=== PATIENT | female | born 1935 | race Caucasian/White ===

== ENCOUNTER 2021-07-13 17:52 | Inpatient (IN) ==
[2021-07-13] MEDS ORDERED: ACETAMINOPHEN 500 MG TAB PO STA (18:07)
--- NOTE | 2021-07-13 18:11 | Emergency Department Note ---
Impression & Plan Closed fracture of left hip, Closed T11 fracture, Fall, Thrombocythemia ED Provider Note NAME: MEGGAN TRINH AGE: 85 SEX: F : 1935 ARRIVES VIA: Ambulance INFORMANT: Patient, EMS personnel, [facility] PROVIDER(S): Desmond Delarosa DO CHIEF COMPLAINT: Back pain the patient is an 85-year-old female who presented to the emergency department for an evaluation of back pain. The patient states that she was HPI: At rehab today at approximately 3:15 PM when she caught her leg and fell down onto her right side. The patient does complain of mostly left-sided pain including her hip her knee as well as her low back. She does take oral anticoagulation and did strike her head but at this time she does not complain of a headache. She denies having any nausea. She states pain is moderate and worsens with any movement or ambulation. She denies having any chest pain. She denies having any difficulty breathing. She has had no recent fevers. [facility] She states that she has been compliant with all of her usual outpatient medications. ROS: See above HPI for pertinent positives & negatives. A total of 10 systems reviewed and were otherwise negative. PAST MEDICAL HISTORY: See Below PAST SURGICAL HISTORY: See Below FAMILY HISTORY: See Below SOCIAL HISTORY: See Below HOME MEDICATIONS: See Below ALLERGIES: See Below VITALS: See Below PHYSICAL EXAMINATION: GENERAL: Patient is awake alert in no acute distress patient is resting comfortably and showing no signs of anxiety EYES: The conjunctivae are clear. The pupils are round and reactive. EARS, NOSE, MOUTH AND THROAT: The nose is without any evidence of any deformity. NECK: The neck is nontender and supple. RESPIRATORY: Normal respiratory effort is noted there is no evidence of wheezing rhonchi or rales CARDIOVASCULAR: Regular rate and rhythm noted there no murmurs rubs or gallops normal S1 normal S2. GASTROINTESTINAL: The abdomen is soft. Abdomen is nontender. BACK: Upper lumbar and lower thoracic pain was noted to palpation. There is no step-off. Range of motion elicits pain but appears to be intact. MUSCULOSKELETAL/EXTREMITIES: There is multiple areas on the patient's body where she has palpable tenderness including her knees bilaterally her hips bilaterally as well as her shoulders bilaterally. The patient states that her shoulder pain is chronic and not new. She denies any new injury to either upper extremity. There is no pain with range of motion testing of either upper extremity. SKIN: There is no obvious evidence of any rash. Trace pedal edema was noted bilaterally. NEUROLOGIC: Patient is awake alert and oriented x3. MEDICAL DECISION MAKING: The patient is an 85-year-old female who presented to the emergency department after a fall. The patient had a fall while she was at rehab. The patient has had multiple falls recently it sounds though she has had bilateral knee pain which may be chronic. On physical exam she had left hip pain as well as back pain. The patient was treated with pain medication in the emergency department. I discussed the patient's laboratory and radiographic studies with her. She does take blood thinners so further CT was obtained to ensure there is no intracranial pathology. Ultimately the patient was found to have a T11 spinal fracture as well as a closed left hip fracture. I discussed the patient's condition [facility] They have agreed to evaluate the patient in the emergency department for further management and disposition. Triage Nursing notes reviewed. Prior medical records reviewed Vital Signs: reviewed and remarkable for no significant abnormalities Differential diagnosis: Fracture, subluxation, dislocation, contusion, ligamentous injury, neurovascular, compartment syndrome, rhabdomyolysis, as well as other pathologies. ER treatment provided: See below Diagnostics interpreted by me: ECG: EKG was obtained in the emergency department. My interpretation is atrial fibrillation at 66 bpm. Right bundle branch block pattern was noted. There is no definite PVCs noted. Cardiac Monitoring: An order was placed for continuous cardiac monitoring. The monitor shows a rate of 69 bpm with atrial fibrillation rhythm. Laboratory studies: As stated above and show below. Imaging studies: See below Consultation(s): 2020: I discussed this case with Dr. Lund who is [facility]. He will evaluate the patient in the emergency department. Past Med/Surg History Medical History History of atrial fibrillation History of CHF (congestive heart failure) History of COPD History of coronary artery disease History of kidney stones Surgical History History of coronary artery bypass graft History of permanent cardiac pacemaker placement Social History (Updated 07/13/21 @ 20:17 by Desmond Delarosa DO) Smoking Status: Never smoker Do You Dip or Chew Tobacco: No; Hx Alcohol Use: No Hx Substance Use: No Communication Ability: Effective Beliefs That Will Affect Care: None Current Living Situation: Alone Feels Safe at Home: Yes Safety Concerns: Feels Safe At This Time Assistive Devices: Glasses, Oxygen - Continuous and Walker Assistive Devices Comment: glasses not with patient Allergies Allergies Allergy/AdvReac Type Severity Reaction Status Date / Time acetaminophen [From Tylenol] Allergy Unknown Verified 07/13/21 20:40 adhesive tape Allergy Unknown Verified 07/13/21 20:40 hydromorphone Allergy Unknown Verified 07/13/21 20:40 oxycodone [From Percocet] Allergy Unknown Verified 07/13/21 20:40 Penicillins Allergy Unknown Verified 07/13/21 20:40 FLU VACCINE Allergy Unknown Uncoded 07/13/21 20:40 HAEMOPHILUS INFLUENZAE Allergy Unknown Uncoded 07/13/21 20:40 Home Meds Home Medications Medication Instructions Recorded Confirmed alendronate 70 mg tablet 70 mg PO WK 07/13/21 07/13/21 apixaban 5 mg tablet (Eliquis) 5 mg PO BID 07/13/21 07/13/21 atorvastatin 80 mg tablet 80 mg PO QPM 07/13/21 07/13/21 fluticasone furoate 200 1 inh INHALATION DAILY 07/13/21 07/13/21 mcg-vilanterol 25 mcg/dose inhalation powder (Breo Ellipta) glipizide 10 mg tablet, extended 10 mg PO DAILY 07/13/21 07/13/21 release 24 hr insulin regular human 100 unit/mL 1 sliding scale dose SUBCUT 07/13/21 07/13/21 injection solution (Humulin R USEASDIRECTD Regular U-100 Insulin) mirabegron 25 mg tablet,extended 25 mg PO DAILY 07/13/21 07/13/21 release 24 hr (Myrbetriq) potassium chloride 10 mEq 10 meq PO BID 07/13/21 07/13/21 tablet,extended release sertraline 50 mg tablet 50 mg PO DAILY 07/13/21 07/13/21 torsemide 20 mg tablet 40 mg PO .TODAY 07/13/21 07/13/21 torsemide 20 mg tablet 40 mg PO DAILY 07/13/21 07/13/21 Results & Data (ED) Vital Signs Vital Signs - 24 hr 07/13/21 18:00 07/13/21 20:37 Temperature 36.4 C L Temperature Source Oral Pulse Rate 69 Respiratory Rate 20 Blood Pressure 152/89 H Blood Pressure Mean 110 Pulse Oximetry 91 99 Oxygen Delivery Method Room Air Nasal Cannula Oxygen Flow Rate 3 Sepsis Recent Fever Within 48 Hours No Sepsis New/Unexplained Change in Mental Status No Sepsis Action Taken by Nursing No Action Required Home Medications Current Medication List: was personally reviewed by me Laboratory Data Attestation: I reviewed the patient's lab results. Result diagrams: 07/13/21 20:16 07/13/21 20:16 Lab Results 07/13/21 07/13/21 07/13/21 Range/Units 20:14 20:14 20:16 WBC (4.8-10.8) K/uL RBC (4.2-5.4) M/uL Hgb (12.0-16.0) g/dL Hct (37-47) % MCV (80-100) fL MCH (25-34) pg MCHC (32-36) g/dL RDW Std Deviation (36.4-46.3) fL RDW Coeff of Pascual (11.5-14.5) % Plt Count (130-400) K/uL MPV (7.4-10.4) fL Immature Gran % (Auto) % Neut % (Auto) % Lymph % (Auto) % Hitchcock % (Auto) % Eos % (Auto) % Baso % (Auto) % Neut # (Auto) (1.4-6.5) K/uL Lymph # (Auto) (1.2-3.4) K/uL Hitchcock # (Auto) (0.11-0.59) K/uL Eos # (Auto) (0-0.5) K/uL Baso # (Auto) (0-0.2) K/uL Immature Gran # (Auto) (0.00-0.02) K/uL PT (9.0-12.0) Seconds INR (0.9-1.1) APTT (21.0-31.0) Seconds PTT Ratio Sodium (136-145) mmol/L Potassium (3.5-5.1) mmol/L Chloride (98-107) mmol/L Carbon Dioxide (21-32) mmol/L Anion Gap (3-11) BUN (7-18) mg/dl Creatinine (0.6-1.2) mg/dl Est Cr Clr Drug Dosing ml/min Est GFR ( Amer) ml/min Est GFR (Non-Af Amer) ml/min BUN/Creatinine Ratio (10-20) Glucose (70-99) mg/dl Calcium (8.5-10.1) mg/dl Total Bilirubin (0.2-1) mg/dl AST (15-37) U/L ALT (12-78) U/L Alkaline Phosphatase (45-117) U/L Troponin I (0-0.045) ng/ml Total Protein (6.4-8.2) gm/dl Albumin (3.4-5.0) gm/dl Globulin (2.5-4.0) gm/dl Albumin/Globulin Ratio (0.9-2) Lipase (73-393) U/L Urine Color Urine Appearance (Clear) Urine pH (4.5-7.5) Ur Specific Chana (1.000-1.030) Urine Protein (Negative) Urine Glucose (UA) (Negative) Urine Ketones (Negative) Urine Blood (Negative) Urine Nitrite (Negative) Urine Bilirubin (Negative) Urine Urobilinogen (Negative) Ur Leukocyte Esterase (Negative) Urine WBC (Auto) (0-5) /hpf Urine RBC (Auto) (0-4) /hpf U Hyaline Cast (Auto) (0-5) /lpf U Epithel Cells (Auto) (0-5) /lpf Urine Bacteria (Auto) (Negative) COVID-19 Eval Order Covid19 at [facility] SARS-CoV-2 (PCR) NEGATIVE (Negative) Blood Type A Positive Antibody Screen NEGATIVE 07/13/21 07/13/21 07/13/21 Range/Units 20:16 20:16 20:16 WBC 15.84 H (4.8-10.8) K/uL RBC 3.87 L (4.2-5.4) M/uL Hgb 12.8 (12.0-16.0) g/dL Hct 39.6 (37-47) % MCV 102.3 H (80-100) fL MCH 33.1 (25-34) pg MCHC 32.3 (32-36) g/dL RDW Std Deviation 58.8 H (36.4-46.3) fL RDW Coeff of Pascual 15.7 H (11.5-14.5) % Plt Count 819 H (130-400) K/uL MPV 10.8 H (7.4-10.4) fL Immature Gran % (Auto) 0.4 % Neut % (Auto) 76.4 % Lymph % (Auto) 13.3 % Hitchcock % (Auto) 6.3 % Eos % (Auto) 3.3 % Baso % (Auto) 0.3 % Neut # (Auto) 12.11 H (1.4-6.5) K/uL Lymph # (Auto) 2.11 (1.2-3.4) K/uL Hitchcock # (Auto) 0.99 H (0.11-0.59) K/uL Eos # (Auto) 0.53 H (0-0.5) K/uL Baso # (Auto) 0.04 (0-0.2) K/uL Immature Gran # (Auto) 0.06 H (0.00-0.02) K/uL PT 10.9 (9.0-12.0) Seconds INR 1.1 (0.9-1.1) APTT 28.5 (21.0-31.0) Seconds PTT Ratio 1.1 Sodium 142 (136-145) mmol/L Potassium 3.5 (3.5-5.1) mmol/L Chloride 106 (98-107) mmol/L Carbon Dioxide 31 (21-32) mmol/L Anion Gap 5.0 (3-11) BUN 27 H (7-18) mg/dl Creatinine 1.13 (0.6-1.2) mg/dl Est Cr Clr Drug Dosing 32.8 ml/min Est GFR ( Amer) 51.3 ml/min Est GFR (Non-Af Amer) 44.3 ml/min BUN/Creatinine Ratio 24.0 H (10-20) Glucose 108 H (70-99) mg/dl Calcium 8.8 (8.5-10.1) mg/dl Total Bilirubin 0.5 (0.2-1) mg/dl AST 18 (15-37) U/L ALT 17 (12-78) U/L Alkaline Phosphatase 82 (45-117) U/L Troponin I < 0.015 (0-0.045) ng/ml Total Protein 7.1 (6.4-8.2) gm/dl Albumin 3.1 L (3.4-5.0) gm/dl Globulin 4.0 (2.5-4.0) gm/dl Albumin/Globulin Ratio 0.8 L (0.9-2) Lipase 394 H (73-393) U/L Urine Color Urine Appearance (Clear) Urine pH (4.5-7.5) Ur Specific Chana (1.000-1.030) Urine Protein (Negative) Urine Glucose (UA) (Negative) Urine Ketones (Negative) Urine Blood (Negative) Urine Nitrite (Negative) Urine Bilirubin (Negative) Urine Urobilinogen (Negative) Ur Leukocyte Esterase (Negative) Urine WBC (Auto) (0-5) /hpf Urine RBC (Auto) (0-4) /hpf U Hyaline Cast (Auto) (0-5) /lpf U Epithel Cells (Auto) (0-5) /lpf Urine Bacteria (Auto) (Negative) COVID-19 Eval Order SARS-CoV-2 (PCR) (Negative) Blood Type Antibody Screen 07/13/21 Range/Units 20:37 WBC (4.8-10.8) K/uL RBC (4.2-5.4) M/uL Hgb (12.0-16.0) g/dL Hct (37-47) % MCV (80-100) fL MCH (25-34) pg MCHC (32-36) g/dL RDW Std Deviation (36.4-46.3) fL RDW Coeff of Pascual (11.5-14.5) % Plt Count (130-400) K/uL MPV (7.4-10.4) fL Immature Gran % (Auto) % Neut % (Auto) % Lymph % (Auto) % Hitchcock % (Auto) % Eos % (Auto) % Baso % (Auto) % Neut # (Auto) (1.4-6.5) K/uL Lymph # (Auto) (1.2-3.4) K/uL Hitchcock # (Auto) (0.11-0.59) K/uL Eos # (Auto) (0-0.5) K/uL Baso # (Auto) (0-0.2) K/uL Immature Gran # (Auto) (0.00-0.02) K/uL PT (9.0-12.0) Seconds INR (0.9-1.1) APTT (21.0-31.0) Seconds PTT Ratio Sodium (136-145) mmol/L Potassium (3.5-5.1) mmol/L Chloride (98-107) mmol/L Carbon Dioxide (21-32) mmol/L Anion Gap (3-11) BUN (7-18) mg/dl Creatinine (0.6-1.2) mg/dl Est Cr Clr Drug Dosing ml/min Est GFR ( Amer) ml/min Est GFR (Non-Af Amer) ml/min BUN/Creatinine Ratio (10-20) Glucose (70-99) mg/dl Calcium (8.5-10.1) mg/dl Total Bilirubin (0.2-1) mg/dl AST (15-37) U/L ALT (12-78) U/L Alkaline Phosphatase (45-117) U/L Troponin I (0-0.045) ng/ml Total Protein (6.4-8.2) gm/dl Albumin (3.4-5.0) gm/dl Globulin (2.5-4.0) gm/dl Albumin/Globulin Ratio (0.9-2) Lipase (73-393) U/L Urine Color Yellow Urine Appearance Clear (Clear) Urine pH 7.0 (4.5-7.5) Ur Specific Chana 1.010 (1.000-1.030) Urine Protein Negative (Negative) Urine Glucose (UA) Negative (Negative) Urine Ketones Negative (Negative) Urine Blood Negative (Negative) Urine Nitrite Negative (Negative) Urine Bilirubin Negative (Negative) Urine Urobilinogen Negative (Negative) Ur Leukocyte Esterase 1+ H (Negative) Urine WBC (Auto) 10-30 H (0-5) /hpf Urine RBC (Auto) 0-4 (0-4) /hpf U Hyaline Cast (Auto) 1-5 (0-5) /lpf U Epithel Cells (Auto) 10-20 H (0-5) /lpf Urine Bacteria (Auto) 4+ H (Negative) COVID-19 Eval Order SARS-CoV-2 (PCR) (Negative) Blood Type Antibody Screen Administered Medications Sodium Chloride (Nss 1000ml) 1,000 mls @ 80 mls/hr IV .[id number] TRISTA Stop: 08/12/21 23:09 Last Admin: 07/13/21 23:49 Dose: 80 mls/hr Documented by: [id number] Discontinued Medications Acetaminophen (Acetaminophen 500 Mg Tab) 1,000 mg PO NOW STA Stop: 07/13/21 18:08 Last Admin: 07/13/21 18:16 Dose: 1,000 mg Documented by: [id number] Imaging Data Radiologist's Impression: Cervical Spine CT 07/13/21 18:[address] DOSE: 3378.30 mGy.cm HISTORY: Fall. Neck pain. TECHNIQUE: Multiaxial CT images of the cervical spine were performed and reformatted in the sagittal and coronal plane without the use of contrast. A dose lowering technique was utilized adhering to the principles of ALARA. COMPARISON: None. FINDINGS: No fractures. No subluxation. Prevertebral soft tissues and the C1-C2 interval are intact. No pneumothorax. IMPRESSION: No fractures within the cervical spine. ACT 112: Negative or not required by law. Electronically signed by: John Jensen M.D. 07/13/2021 7:[address] 07/13/21 18:[address] DOSE: HISTORY: Fall. TECHNIQUE: Multiaxial CT images of the head were performed without the use of intravenous contrast. Automated exposure control was utilized for this study. A dose lowering technique was utilized adhering to the principles of ALARA. Comparison: None. Findings: Moderate mucosal thickening and a small fluid level within the right maxillary sinus. There is near-complete opacification of the right mastoid air cells. A 2 cm anterior nasal septal defect is noted. This is likely chronic. The left mastoid air cells are clear. The calvarium and skull base are intact. There is no mass, hematoma, midline shift, acute infarct. White matter hypodensity is nonspecific but suggestive of microvascular ischemic change. The ventricles and sulci demonstrate mild age-related involutional changes. Impression: 1. No acute intracranial abnormality. 2. Atrophy and microvascular ischemic changes. 3. An acute mild right maxillary sinusitis. There is also a right mastoid effusion. ACT 112: Negative or not required by law. Electronically signed by: John Jensen M.D. 07/13/2021 7:01 PM Hip/Pelvis X-Ray 07/13/21 18:05 XR hips KRISTIAN 1v w pelvis CLINICAL HISTORY: Fall. Bilateral hip pain. COMPARISON STUDY: None. FINDINGS: Subtle cortical irregularity at the left femoral head neck junction consistent with an impacted subcapital fracture. No dislocation. The bones are osteopenic. The visualized pelvic bones are intact. No fracture or dislocation within the right hip. There is mild osteoarthritis within the bilateral hips. IMPRESSION: Slightly impacted subcapital left femoral neck fracture. No dislocation. ACT 112: Negative or not required by law. Electronically signed by: John Jensen M.D. 07/13/2021 7:34 PM Knee X-Ray 07/13/21 18:05 XR knee RT 1 or 2V routine, XR knee LT 1 or 2V routine CLINICAL HISTORY: Fall. Bilateral knee pain. COMPARISON STUDY: None. FINDINGS: The bones are osteopenic. No fracture or dislocation within the right or left knee. Small bilateral knee effusions. Surgical clips within the left lower leg. Vascular calcifications are noted. Moderate to severe bilateral knee osteoarthritis. IMPRESSION: 1. No fractures within the right or left knee. 2. Small bilateral knee effusions. 3. Moderate to severe bilateral osteoarthritis. ACT 112: Negative or not required by law. Electronically signed by: John Jensen M.D. 07/13/2021 7:36 PM Knee X-Ray 07/13/21 18:05 XR knee RT 1 or 2V routine, XR knee LT 1 or 2V routine CLINICAL HISTORY: Fall. Bilateral knee pain. COMPARISON STUDY: None. FINDINGS: The bones are osteopenic. No fracture or dislocation within the right or left knee. Small bilateral knee effusions. Surgical clips within the left lower leg. Vascular calcifications are noted. Moderate to severe bilateral knee osteoarthritis. IMPRESSION: 1. No fractures within the right or left knee. 2. Small bilateral knee effusions. 3. Moderate to severe bilateral osteoarthritis. ACT 112: Negative or not required by law. Electronically signed by: John Jensen M.D. 07/13/2021 7:[address] 07/13/21 18:[address] DOSE: HISTORY: Back pain. Fall. TECHNIQUE: Multiaxial CT images of the lumbar spine were performed and reformatted in the sagittal and coronal plane without the use of contrast. A dose lowering technique was utilized adhering to the principles of ALARA. COMPARISON: None. FINDINGS: No fractures within the lumbar spine. There is 5 mm of anterolisthesis of L4 and L5. Mild disc space narrowing at L4-5. There are moderate to severe facet degenerative changes within the mid to lower lumbar spine. The sacrum is intact. IMPRESSION: No fractures within the lumbar spine. ACT 112: Negative or not required by law. Electronically signed by: John Jensen M.D. 07/13/2021 7:[address] 07/13/21 18:[address] DOSE: HISTORY: Fall. Back pain. TECHNIQUE: Multiaxial CT images of the thoracic spine were performed and reformatted in the sagittal and coronal plane without the use of contrast. A dose lowering technique was utilized adhering to the principles of ALARA. COMPARISON: None. FINDINGS: Multiple old, healed right-sided rib fractures. 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 No subluxation. Moderate dextroscoliosis. There is a horizontal fracture through the anterior half of the T11 vertebral body. This does not involve the posterior cortex or posterior elements. This fracture appears to extend to the inferior endplate of T11. No significant loss of height or retropulsion identified. Mild paravertebral edema at the T11 level. The central canal shows no significant narrowing. Emphysema. No pneumothorax. No pleural effusions. A 7 mm nodule within the left upper lobe posteriorly abutting the major fissure on image 110. IMPRESSION: 1. A nondisplaced horizontal fracture through the anterior aspect of the T11 ve rtebral body which extends to the inferior endplate. No associated retropulsion or significant loss of height. The fracture does not extend to the posterior cortex or posterior elements. 2. Emphysema. 3. A 7 mm indeterminate pulmonary nodule within the left upper lobe. Please refer to the chart below for recommended follow-up. 4. Multiple old, healed right-sided rib fractures. Please refer to below summary of Fleischner criteria recommendations for follow- up of incidental CT nodules (Mick Obrien, Guidelines for management of small pu lmonary nodules detected on CT scans: A statement from the Fleischner Society, Radiology 237: [phone].) SOLID NODULES Solitary nodule size: <6 mm * Low risk patients: no follow-up needed * high risk patients: optional CT at 12 months Solitary nodule size: 6-8 mm * Low risk patients: follow-up at 6-12 months, then consider further follow-up at 18-24 months * high risk patients: initial follow-up CT at 6-12 months and then at 18-24 months if no change Solitary nodule size: >8 mm * either low or high risk patients - consider follow-up CT at 3 months, and/or CT-PET, and/or biopsy Multiple nodules size: <6 mm * Low risk patients: no routine follow-up * high risk patients: optional CT at 12 months Multiple nodules size: 6-8 mm * Low risk patients: follow-up at 3-6 months, then consider further follow-up at 18-24 months * high risk patients: follow-up at 3-6 months, then at 18-24 months if no change Multiple nodules size: >8 mm * Low risk patients: follow-up at 3-6 months, then consider further follow-up at 18-24 months * high risk patients: follow-up at 3-6 months, then at 18-24 months if no change Note: newly detected indeterminate nodule in persons 35 years of age or older. * Low risk patients: minimal or absent history of smoking and/or other known risk factors * high risk patients: history of smoking or of other known risk factors (e.g. first degree relative with lung cancer, or exposure to asbestos, radon, uranium) * if a nodule up to 8 mm is partly solid or is ground glass further follow-up is required after 24 months to exclude possible slow growing adenocarcinoma (YOLA) SUBSOLID NODULES Solitary pure ground-glass nodule * nodule size <6 mm - no CT follow-up required * nodule size >=6 mm - follow-up CT at 6-12 months, then every 2 years until 5 years Solitary part-solid nodule * nodule size <6 mm - no CT follow-up required * nodule size >=6 mm - follow-up CT at 3-6 months. If unchanged, and solid component remains <6 mm, then annual follow-up for 5 years Multiple subsolid nodules * nodule size <6 mm - follow-up CT at 3-6 months, consider further follow-up at 2 and 4 years if stable * nodule size >=6 mm - follow-up CT at 3-6 months, subsequent management based on the most suspicious nodule(s) ACT 112: Positive. There are findings on this exam that require communication between the performing entity and the patient following Patient Test Result Information Act ([place] Act 112) guidelines. Electronically signed by: John Jensen M.D. 07/13/2021 7:14 PM Chest X-Ray 07/13/21 19:53 XR chest 1V portable HISTORY: Atypical Chest Pain COMPARISON: None. FINDINGS: Slightly rotated study. No pneumothorax. No pleural effusions. No focal lung consolidations to suggest pneumonia. Mild interstitial thickening which is likely chronic. A few bibasilar linear densities likely representing subsegmental atelectasis or scarring. The heart is mildly enlarged. Is left- sided dual-chamber pacemaker and poststernotomy changes. No evidence for pulmonary edema. Severe degenerative changes within the left glenohumeral joint with an old fracture deformity of the proximal left humerus. There are old, healed right-sided rib fractures. IMPRESSION: Chronic changes as described above. No acute process within the chest. ACT 112: Negative or not required by law. Electronically signed by: John Jensen M.D. 07/13/2021 8:30 PM Discharge Plan Visit Data Chief Complaint: Fall ED Provider: Desmond Delarosa Discharge Problem: Closed fracture of left hip, Closed T11 fracture, Fall, Thrombocythemia Patient Disposition: Admitted As Inpatient Discharge Instructions Interventions: ED Discharge Assessment Last Done: 07/13/21 23:01
--- NOTE | 2021-07-13 19:03 | CT Scan Report ---
HEAD CT NONCONTRAST CT DOSE: HISTORY: Fall. TECHNIQUE: Multiaxial CT images of the head were performed without the use of intravenous contrast. A utomated exposure control was utilized for this study. A dose lowering technique was utilized adheri ng to the principles of ALARA. Comparison: None. Findings: Moderate mucosal thickening and a small fluid level within the right maxillary sinus. There is near-complete opacification of the right mastoid air cells. A 2 cm anterior nasal septal defect i s noted. This is likely chronic. The left mastoid air cells are clear. The calvarium and skull base a re intact. There is no mass, hematoma, midline shift, acute infarct. White matter hypodensity is nons pecific but suggestive of microvascular ischemic change. The ventricles and sulci demonstrate mild ag e-related involutional changes. Impression: 1. No acute intracranial abnormality. 2. Atrophy and microvascular ischemic changes. 3. An acute mild right maxillary sinusitis. There is also a right mastoid effusion. ACT 112: Negative or not required by law. Electronically signed by: John Jensen M.D. 07/13/2021 7:01 PM
--- NOTE | 2021-07-13 19:09 | CT Scan Report ---
CERVICAL SPINE CT CT DOSE: 3378.30 mGy.cm HISTORY: Fall. Neck pain. TECHNIQUE: Multiaxial CT images of the cervical spine were performed and reformatted in the sagittal and coronal plane without the use of contrast. A dose lowering technique was utilized adhering to th e principles of ALARA. COMPARISON: None. FINDINGS: No fractures. No subluxation. Prevertebral soft tissues and the C1-C2 interval are intact. No pneumothorax. IMPRESSION: No fractures within the cervical spine. ACT 112: Negative or not required by law. Electronically signed by: John Jensen M.D. 07/13/2021 7:08 PM
--- NOTE | 2021-07-13 19:16 | CT Scan Report ---
THORACIC SPINE CT CT DOSE: HISTORY: Fall. Back pain. TECHNIQUE: Multiaxial CT images of the thoracic spine were performed and reformatted in the sagittal and coronal plane without the use of contrast. A dose lowering technique was utilized adhering to th e principles of ALARA. COMPARISON: None. FINDINGS: Multiple old, healed right-sided rib fractures. There is diffuse idiopathic skeletal hypero stosis throughout the majority thoracic spine. No subluxation. Moderate dextroscoliosis. There is a h orizontal fracture through the anterior half of the T11 vertebral body. This does not involve the pos terior cortex or posterior elements. This fracture appears to extend to the inferior endplate of T11. No significant loss of height or retropulsion identified. Mild paravertebral edema at the T11 level. The central canal shows no significant narrowing. Emphysema. No pneumothorax. No pleural effusions. A 7 mm nodule within the left upper lobe posteriorly abutting the major fissure on image 110. IMPRESSION: 1. A nondisplaced horizontal fracture through the anterior aspect of the T11 vertebral body which ext ends to the inferior endplate. No associated retropulsion or significant loss of height. The fracture does not extend to the posterior cortex or posterior elements. 2. Emphysema. 3. A 7 mm indeterminate pulmonary nodule within the left upper lobe. Please refer to the chart below for recommended follow-up. 4. Multiple old, healed right-sided rib fractures. Please refer to below summary of Fleischner criteria recommendations for follow-up of incidental CT n odules (Mick Obrien, Guidelines for management of small pulmonary nodules detected on CT scans: A sta tement from the Fleischner Society, Radiology 237: [phone].) SOLID NODULES Solitary nodule size: <6 mm * Low risk patients: no follow-up needed * high risk patients: optional CT at 12 months Solitary nodule size: 6-8 mm * Low risk patients: follow-up at 6-12 months, then consider further follow-up at 18-24 months * high risk patients: initial follow-up CT at 6-12 months and then at 18-24 months if no change Solitary nodule size: >8 mm * either low or high risk patients - consider follow-up CT at 3 months, and/or CT-PET, and/or biopsy Multiple nodules size: <6 mm * Low risk patients: no routine follow-up * high risk patients: optional CT at 12 months Multiple nodules size: 6-8 mm * Low risk patients: follow-up at 3-6 months, then consider further follow-up at 18-24 months * high risk patients: follow-up at 3-6 months, then at 18-24 months if no change Multiple nodules size: >8 mm * Low risk patients: follow-up at 3-6 months, then consider further follow-up at 18-24 months * high risk patients: follow-up at 3-6 months, then at 18-24 months if no change Note: newly detected indeterminate nodule in persons 35 years of age or older. * Low risk patients: minimal or absent history of smoking and/or other known risk factors * high risk patients: history of smoking or of other known risk factors (e.g. first degree relative with lung cancer, or exposure to asbestos, radon, uranium) * if a nodule up to 8 mm is partly solid or is ground glass further follow-up is required after 24 m onths to exclude possible slow growing adenocarcinoma ([facility]) SUBSOLID NODULES Solitary pure ground-glass nodule * nodule size <6 mm - no CT follow-up required * nodule size >=6 mm - follow-up CT at 6-12 months, then every 2 years until 5 years Solitary part-solid nodule * nodule size <6 mm - no CT follow-up required * nodule size >=6 mm - follow-up CT at 3-6 months. If unchanged, and solid component remains <6 mm, then annual follow-up for 5 years Multiple subsolid nodules * nodule size <6 mm - follow-up CT at 3-6 months, consider further follow-up at 2 and 4 years if sta ble * nodule size >=6 mm - follow-up CT at 3-6 months, subsequent management based on the most suspiciou s nodule(s) ACT 112: Positive. There are findings on this exam that require communication between the performing entity and the patient following Patient Test Result Information Act ([place] Act 112) guidelines. Electronically signed by: John Jensen M.D. 07/13/2021 7:14 PM
--- NOTE | 2021-07-13 19:19 | CT Scan Report ---
LUMBAR SPINE CT CT DOSE: HISTORY: Back pain. Fall. TECHNIQUE: Multiaxial CT images of the lumbar spine were performed and reformatted in the sagittal an d coronal plane without the use of contrast. A dose lowering technique was utilized adhering to the principles of ALARA. COMPARISON: None. FINDINGS: No fractures within the lumbar spine. There is 5 mm of anterolisthesis of L4 and L5. Mild d isc space narrowing at L4-5. There are moderate to severe facet degenerative changes within the mid t o lower lumbar spine. The sacrum is intact. IMPRESSION: No fractures within the lumbar spine. ACT 112: Negative or not required by law. Electronically signed by: John Jensen M.D. 07/13/2021 7:18 PM
--- NOTE | 2021-07-13 19:35 | XRay Report ---
XR hips KRISTIAN 1v w pelvis CLINICAL HISTORY: Fall. Bilateral hip pain. COMPARISON STUDY: None. FINDINGS: Subtle cortical irregularity at the left femoral head neck junction consistent with an impa cted subcapital fracture. No dislocation. The bones are osteopenic. The visualized pelvic bones are i ntact. No fracture or dislocation within the right hip. There is mild osteoarthritis within the bilat eral hips. IMPRESSION: Slightly impacted subcapital left femoral neck fracture. No dislocation. ACT 112: Negative or not required by law. Electronically signed by: John Jensen M.D. 07/13/2021 7:34 PM
--- NOTE | 2021-07-13 19:37 | XRay Report ---
XR knee RT 1 or 2V routine, XR knee LT 1 or 2V routine CLINICAL HISTORY: Fall. Bilateral knee pain. COMPARISON STUDY: None. FINDINGS: The bones are osteopenic. No fracture or dislocation within the right or left knee. Small b ilateral knee effusions. Surgical clips within the left lower leg. Vascular calcifications are noted. Moderate to severe bilateral knee osteoarthritis. IMPRESSION: 1. No fractures within the right or left knee. 2. Small bilateral knee effusions. 3. Moderate to severe bilateral osteoarthritis. ACT 112: Negative or not required by law. Electronically signed by: John Jensen M.D. 07/13/2021 7:36 PM
--- NOTE | 2021-07-13 20:32 | XRay Report ---
XR chest 1V portable HISTORY: Atypical Chest Pain COMPARISON: None. FINDINGS: Slightly rotated study. No pneumothorax. No pleural effusions. No focal lung consolidations to suggest pneumonia. Mild interstitial thickening which is likely chronic. A few bibasilar linear d ensities likely representing subsegmental atelectasis or scarring. The heart is mildly enlarged. Is l eft-sided dual-chamber pacemaker and poststernotomy changes. No evidence for pulmonary edema. Severe degenerative changes within the left glenohumeral joint with an old fracture deformity of the proxima l left humerus. There are old, healed right-sided rib fractures. IMPRESSION: Chronic changes as described above. No acute process within the chest. ACT 112: Negative or not required by law. Electronically signed by: John Jensen M.D. 07/13/2021 8:30 PM
[2021-07-13 20:44] LABS: Basophils # (auto) 0.04 K/uL (0-0.2); Basophils % (auto) 0.3 %; Eosinophils # (auto) 0.53 K/uL (0-0.5); Eosinophils % (auto) 3.3 %; Hematocrit (blood only) 39.6 % (37-47); Hemoglobin 12.8 g/dL (12.0-16.0); Immature Granulocytes # (auto) 0.06 K/uL (0.00-0.02); Immature Granulocytes % (auto) 0.4 %; Lymphocytes # (auto) 2.11 K/uL (1.2-3.4); Lymphocytes % (auto) 13.3 %; Mean Corpuscular Hemoglobin 33.1 pg (25-34); Mean Corpuscular Hgb Conc 32.3 g/dL (32-36); Mean Corpuscular Volume 102.3 fL (80-100); Mean Platelet Volume 10.8 fL (7.4-10.4); Monocytes # (auto) 0.99 K/uL (0.11-0.59); Monocytes % (auto) 6.3 %; Neutrophils # (auto) 12.11 K/uL (1.4-6.5); Neutrophils % (auto) 76.4 %; Platelet Count 819 K/uL (130-400); RDW Coefficient of Variation 15.7 % (11.5-14.5); RDW Standard Deviation 58.8 fL (36.4-46.3); Red Blood Count 3.87 M/uL (4.2-5.4); White Blood Count 15.84 K/uL (4.8-10.8)
[2021-07-13 20:56] LABS: INR 1.1 (0.9-1.1); Partial Thromboplastin Ratio 1.1; Partial Thromboplastin Time 28.5 Seconds (21.0-31.0); Prothrombin Time 10.9 Seconds (9.0-12.0)
[2021-07-13 21:09] LABS: Alanine Aminotransferase 17 U/L (12-78); Albumin Level 3.1 gm/dl (3.4-5.0); Aspartate Aminotransferase 18 U/L (15-37); Blood Urea Nitrogen 27 mg/dl (7-18); Calcium 8.8 mg/dl (8.5-10.1); Carbon Dioxide 31 mmol/L (21-32); Chloride 106 mmol/L (98-107); Creatinine Clr Calc Pharmacy 32.8 ml/min; Est GFR (African American) 51.3 ml/min; Est GFR (Non-African American) 44.3 ml/min; Glucose 108 mg/dl (70-99); Lipase 394 U/L (73-393); Potassium 3.5 mmol/L (3.5-5.1); Sodium 142 mmol/L (136-145)
[2021-07-13 21:13] LABS: Albumin Globulin Ratio 0.8 (0.9-2); Alkaline Phosphatase 82 U/L (45-117); Bilirubin,Total 0.5 mg/dl (0.2-1); Total Protein 7.1 gm/dl (6.4-8.2); Troponin I < 0.015 ng/ml (0-0.045)
[2021-07-13 22:13] LABS: Appearance Urine Clear (Clear); Bacteria Urine Automated 4+ (Negative); Bilirubin Urine Negative (Negative); Blood Urine Negative (Negative); Color Urine Yellow; Glucose Urine UA Negative (Negative); Ketones Urine Negative (Negative); Leukocyte Esterase Urine 1+ (Negative); Nitrite Urine Negative (Negative); Protein Urine Negative (Negative); RBC Urine Automated 0-4 /hpf (0-4); Urobilinogen Urine Negative (Negative)
[2021-07-13] MEDS ORDERED: ONDANSETRON INJ 2 MG/ML 2 ML VIAL IV PRN (22:41)
[2021-07-13] MEDS ORDERED: POLYETHYLENE (MIRALAX) 17 GM PACK PO PRN (22:41)
[2021-07-13] MEDS ORDERED: HYDROmorphone INJ 0.5 MG/0.5 ML SYR IV PRN (22:41)
[2021-07-13] MEDS ORDERED: DEXTROSE 50% 50 ML SYRINGE IV PRN (23:15)
[2021-07-13] MEDS ORDERED: GLUCAGON FOR INJ 1 MG VIAL IM PRN (23:15)
[2021-07-13] MEDS ORDERED: GLUCOSE 40% GEL 15 GM TUBE PO PRN (23:15)
[2021-07-13] MEDS ORDERED: GLUCOSE 10 TABS/TUBE PO PRN (23:15)
[2021-07-13] MEDS ORDERED: CARBOHYDRATES FOR HYPOGLYCEMIA PO PRN (23:15)
--- NOTE | 2021-07-13 23:38 | History and Physical Report ---
DATE OF ADMISSION: 07/13/2021 CHIEF COMPLAINT: Status post fall, T12 thoracic spine fracture and left hip fracture. HISTORY OF PRESENT ILLNESS: An 85-year-old female with past medical history significant for COPD, chronic respiratory failure -- on home oxygen, chronic diastolic CHF, chronic atrial fibrillation, peripheral vascular disease, CAD, status post CABG, hypertension, obesity, chronic kidney disease stage III, history of osteoporosis, generalized osteoarthritis, thrombocytosis, history of third-degree heart block, status post pacemaker, depression, anxiety, impaired mobility and ADLs. The patient is currently at [facility] because she has both rotator cuff pain and shoulder pain. She says she had surgery on the shoulder 2 times and at this time, there is no surgery planned and she is in rehab for the pain. Today, she comes here because of fall. Today after 3:00 p.m., she was walking with a walker when she slipped and fell on the right side. She hit her head, but no loss of consciousness. She was trying to avoid direct hit to head and she was brought in here. She was found to have T12 spine fracture and also left hip fracture. The patient was surprised of how she has injured her left hip. No loss of consciousness. Complains of back pain and shoulder pain. Denies any chest pain, no shortness of breath, no cough, no fevers, no headaches, no blurred visions, no earache, no runny nose, no sore throat. Appetite is good. No difficulty swallowing. No nausea. Says she has mild abdominal discomfort. Normal bowel movements. Normal bladder movements. Currently, resting comfortably and hemodynamically stable. ALLERGIES: TYLENOL, ADHESIVE TAPE, HYDROMORPHONE, OXYCODONE, PENICILLINS, FLU VACCINES OF HAEMOPHILUS INFLUENZAE. PAST MEDICAL HISTORY: As mentioned above. PAST SURGICAL HISTORY: Status post CABG, status post pacemaker, cataract surgery, shoulder surgeries as per the patient. MEDICATIONS: The patient is on atenolol 70 mg p.o. weekly, Eliquis 5 mg p.o. b.i.d., atorvastatin 80 mg p.o. p.m., Breo Ellipta 1 inhalation daily, glipizide 10 mg p.o. daily, insulin sliding scale, Myrbetriq 25 mg p.o. daily, potassium chloride 20 mEq p.o. b.i.d., sertraline 50 mg p.o. daily, torsemide 40 mg p.o. daily. FAMILY HISTORY: Significant for father had cancer, heart attack and stroke; mother had diabetes; brother has diabetes. SOCIAL HISTORY: . She has help at home. Quit smoking in 1987. Smoked half pack a day for 46 years. Alcohol, 1 glass of wine rarely. No drug use. REVIEW OF SYSTEMS: As per HPI. Rest of review of systems is negative. PHYSICAL EXAMINATION: GENERAL: The patient is obese, not in acute distress. VITAL SIGNS: Temperature 36.4, pulse 69, respiratory rate 20, blood pressure 152/89, oxygen 99% on 3 liters. HEENT: Pupils equal, round and reactive to light. Oral mucosa dry. NECK: No JVD, no neck masses. CARDIOVASCULAR: S1 and S2 heard. Regular rate and rhythm. No murmur, no gallop. RESPIRATORY SYSTEM: Normal AP diameter. No accessory muscle use. No wheezing, no crackles. ABDOMEN: Soft, bowel sounds present, nontender, no distention. CENTRAL NERVOUS SYSTEM: Alert and oriented. Cranial nerves II-XII grossly intact, nonfocal. EXTREMITIES: Left lower extremity is shortened and externally rotated, painful movements. No edema, no erythema seen. LABORATORY DATA: WBC 15.8, hemoglobin 12.8, hematocrit 39.6, platelets 819. PT 10.9, INR 1.1, APTT 28.5. Sodium 142, potassium 3.5, chloride 106, bicarbonate 31, BUN 27, creatinine 1.1, serum glucose 108, calcium 8.8, total bilirubin 0.5, AST 18, ALT 17, alkaline phosphatase 82. Troponin I less than 0.015. Lipase 394. Urinalysis pending. SARS-CoV-2 PCR negative. IMAGIN. Chest x-ray: Chronic changes, no acute process. 2. Thoracic spine CT: Nondisplaced T12 fracture through the anterior aspect of vertebral body, which extends to the inferior endplate. A 7 mm indeterminate pulmonary nodule within the left upper lobe. 3. Lumbar spine CT: No acute findings. 4. Bilateral knee x-rays: No fractures, moderate to severe bilateral osteoarthritis. 5. Pelvic and hip x-ray: Slightly impacted subcapital left femoral neck fracture. No dislocation. 6. CT of the head: No acute intracranial findings. Atrophy and microvascular ischemic changes. Mild right maxillary sinusitis. 7. Cervical spine CT: No fractures, no subluxation, no pneumothorax. 8. EKG: Sinus rhythm with a first-degree AV block at a rate of 66, right bundle-branch block and left anterior fascicular block. ASSESSMENT AND PLAN: This 85-year-old female with history of chronic obstructive pulmonary disease, chronic respiratory failure -- on home oxygen, history of diastolic congestive heart failure, atrial fibrillation, chronic kidney disease stage III, history of third-degree heart block, status post pacemaker, hypertension and sleep apnea, not using CPAP, peripheral vascular disease, chronic arthritis, anxiety and depression, osteoporosis, presents with fall. Currently living at [facility] for shoulder rotator cuff problem and comes with a mechanical fall and T12 spine fracture and left hip fracture. 1. Left hip fracture. We will admit the patient to the medical floor. We will keep her n.p.o., IV gentle fluids, pain medication p.r.n. Consult orthopedics in a.m. for further recommendation. The patient has history of multiple medical problems and because of her age, the patient will be at least moderate risk for any procedure. Further management as per orthopedics. Physical therapy and occupational therapy when stable. 2. T12 spine fracture. Pain control. We will ask spine surgery to evaluate the patient. Physical therapy and occupational therapy when stable. 3. History of coronary artery disease, status post coronary artery bypass grafting. Continue her statin. Holding her Eliquis. 4. History of atrial fibrillation. Currently not on rate-limiting medication. We are holding her Eliquis for any procedures. Restart as soon as possible. 5. History of diabetes, holding her glipizide. Place her on insulin sliding scale. Follow hemoglobin A1c level. Follow the blood sugars. 6. History of chronic diastolic congestive heart failure. Continue torsemide and potassium supplements. The patient is getting gentle fluids, monitor for any volume overload. 7. Depression, anxiety. Continue sertraline. 8. History of chronic obstructive pulmonary disease and chronic respiratory failure, on home oxygen. Continue her home inhalers, currently stable. 9. History of osteoporosis. Continue alendronate q. weekly. 10. Lung nodule. needs followup. 11. Deep venous thrombosis prophylaxis. Could not place Scds because of hip fracture. Holding Eliquis because of the any procedures. Restart Eliquis as soon as possible. DISPOSITION: Admit to medical floor. PT, OT prior to discharge. Social service to help with discharge planning. Discharge back to [facility] when stable. Level 1 full code as per my discussion with the patient. Job ID: [id number] MTDD
[2021-07-13] MEDS: SODIUM CHLORIDE 0.9% 1000ML 1,000 ML IV SCH (23:49)
[2021-07-14] MEDS ORDERED: Nursing to Pharmacy Communication SCH ×2 (04:15→17:15)
[2021-07-14] MEDS: ACETAMINOPHEN 1000 MG/100 ML IV IV PRN ×2 (04:22→17:40)
[2021-07-14 05:35] LABS: Basophils # (auto) 0.03 K/uL (0-0.2); Basophils % (auto) 0.3 %; Eosinophils # (auto) 0.39 K/uL (0-0.5); Eosinophils % (auto) 3.5 %; Hematocrit (blood only) 36.7 % (37-47); Hemoglobin 11.6 g/dL (12.0-16.0); Immature Granulocytes # (auto) 0.03 K/uL (0.00-0.02); Immature Granulocytes % (auto) 0.3 %; Lymphocytes # (auto) 1.54 K/uL (1.2-3.4); Lymphocytes % (auto) 13.9 %; Mean Corpuscular Hemoglobin 32.8 pg (25-34); Mean Corpuscular Hgb Conc 31.6 g/dL (32-36); Mean Corpuscular Volume 103.7 fL (80-100); Mean Platelet Volume 10.4 fL (7.4-10.4); Monocytes # (auto) 0.71 K/uL (0.11-0.59); Monocytes % (auto) 6.4 %; Neutrophils # (auto) 8.39 K/uL (1.4-6.5); Neutrophils % (auto) 75.6 %; Platelet Count 677 K/uL (130-400); RDW Coefficient of Variation 15.6 % (11.5-14.5); RDW Standard Deviation 59.5 fL (36.4-46.3); Red Blood Count 3.54 M/uL (4.2-5.4); White Blood Count 11.09 K/uL (4.8-10.8)
[2021-07-14 05:53] LABS: BUN Creatinine Ratio 22.2 (10-20); Calcium 8.3 mg/dl (8.5-10.1); Creatinine Clr Calc Pharmacy 36.7 ml/min; Est GFR (African American) 59.5 ml/min; Est GFR (Non-African American) 51.3 ml/min; Magnesium 2.2 mg/dl (1.8-2.4); Potassium 3.4 mmol/L (3.5-5.1)
[2021-07-14] MEDS: INSULIN ASPART 100 UNITS/ML 3 ML PEN SC SCH ×4 (05:56→21:21)
[2021-07-14] MEDS ORDERED: INSULIN ASPART 100 UNITS/ML 3 ML PEN SC SCH (07:30)
[2021-07-14 07:44] LABS: Estimated Average Glucose 154 mg/dl
--- NOTE | 2021-07-14 08:29 | Orthopedic Consultation ---
Date of Consultation July 14, 2021 Assessment & Plan (1) Closed T11 fracture: Assessment T11 fracture. The fracture does appear to be nondisplaced does not extend to the middle or posterior columns. I am considering a brace when she begins transfers and attempted ambulation. However her body habitus would make this very challenging as well as limit its effectiveness. See how she progresses and may consider brace in the future. History of Present Illness Reason for Consultation: Thoracic spine fracture Attending Physician: Ortiz Jaime MD History of Present Illness This is a very pleasant 85-year-old female that is status post fall. She has multiple injuries and significant medical history. She does have a T11 fracture that appears to be nondisplaced. She does complain of thoracic back pain as well as left leg pain. Denies any numbness or tingling lower extremities. Allergies Allergy/AdvReac Type Severity Reaction Status Date / Time adhesive tape Allergy Unknown Verified 07/13/21 20:40 hydromorphone Allergy Unknown Verified 07/13/21 20:40 oxycodone [From Percocet] Allergy Unknown Verified 07/13/21 20:40 Penicillins Allergy Unknown Verified 07/13/21 20:40 FLU VACCINE Allergy Unknown Uncoded 07/13/21 20:40 HAEMOPHILUS INFLUENZAE Allergy Unknown Uncoded 07/13/21 20:40 Home Medications Medication Instructions Recorded Confirmed Type alendronate 70 mg tablet 70 mg PO WK 07/13/21 07/13/21 History apixaban 5 mg tablet (Eliquis) 5 mg PO BID 07/13/21 07/13/21 History atorvastatin 80 mg tablet 80 mg PO QPM 07/13/21 07/13/21 History fluticasone furoate 200 1 inh INHALATION DAILY 07/13/21 07/13/21 History mcg-vilanterol 25 mcg/dose inhalation powder (Breo Ellipta) glipizide 10 mg tablet, extended 10 mg PO DAILY 07/13/21 07/13/21 History release 24 hr insulin regular human 100 unit/mL 1 sliding scale dose SUBCUT 07/13/21 07/13/21 History injection solution (Humulin R USEASDIRECTD Regular U-100 Insulin) mirabegron 25 mg tablet,extended 25 mg PO DAILY 07/13/21 07/13/21 History release 24 hr (Myrbetriq) potassium chloride 10 mEq 10 meq PO BID 07/13/21 07/13/21 History tablet,extended release sertraline 50 mg tablet 50 mg PO DAILY 07/13/21 07/13/21 History torsemide 20 mg tablet 40 mg PO .TODAY 07/13/21 07/13/21 History torsemide 20 mg tablet 40 mg PO DAILY 07/13/21 07/13/21 History Patient History Medical History History of atrial fibrillation History of CHF (congestive heart failure) History of COPD History of coronary artery disease History of kidney stones Surgical History History of coronary artery bypass graft History of permanent cardiac pacemaker placement Social History (Updated 07/13/21 @ 20:17 by Desmond Delarosa DO) Smoking Status: Never smoker Do You Dip or Chew Tobacco: No; Hx Alcohol Use: No Hx Substance Use: No Communication Ability: Effective Beliefs That Will Affect Care: None Current Living Situation: Alone Feels Safe at Home: Yes Safety Concerns: Feels Safe At This Time Assistive Devices: Glasses, Oxygen - Continuous and Walker Assistive Devices Comment: glasses not with patient Physical Exam Physical Exam: On exam I did not roll her in bed secondary to her hip fracture. She does have 5 or 5 plantar flexion dorsiflexion with sensory intact. Results & Data ([facility]) Vital Signs (Past 12 Hours) Vital Signs Temp Pulse Resp BP Pulse Ox 07/14/21 08:06 36.6 C 59 L 16 139/65 91 07/13/21 22:42 36.5 C 16 138/76 98 07/13/21 21:43 16 148/68 H 89 L 07/13/21 20:37 99 (1) Closed T11 fracture Encounter type: initial encounter Fracture morphology: unspecified fracture m orphology Qualified Code(s): S22.089A - Unspecified fracture of T11-T12 vertebra, initial encounter for closed fracture
[2021-07-14] MEDS: MIRABEGRON ER 25 MG TAB PO SCH (09:20)
[2021-07-14] MEDS: POTASSIUM CHLORIDE 10 MEQ TABCR PO SCH ×2 (09:20→20:41)
[2021-07-14] MEDS: SERTRALINE HCL 50 MG TABLET PO SCH (09:20)
[2021-07-14] MEDS: TORSEMIDE 20 MG TAB PO SCH (09:20)
--- NOTE | 2021-07-14 10:04 | CT Scan Report ---
CT SCAN OF THE LEFT HIP WITHOUT IV CONTRAST CLINICAL HISTORY: Left hip fracture. Preoperative planning. COMPARISON STUDY: Radiographs of the left hip and bony pelvis dated 07/13/2021. TECHNIQUE: CT scan of the left hip is performed from the bony pelvis to the femoral shaft. Images are reviewed in the axial, sagittal, and coronal planes. IV contrast was not administered for this exami nation. 3-D reformats are created and assessed. A dose lowering technique was utilized adhering to e principles of ALARA. CT DOSE: 744.24 mGy.cm FINDINGS: The skeletal structures are osteopenic. No fracture is identified involving the left hip or the visualized left hemipelvis. The fracture questioned on yesterday's radiographs could not be conf irmed. There is mild to moderate degenerative joint space narrowing noted in the left hip with spurri ng along the superior and inferior aspects of the femoral head. There is no evidence of joint effusio n. No lytic or blastic lesion is seen. No hemorrhage is identified around the proximal femur. The shin dder and uterus are normal as visualized. There is generalized atrophy of the regional musculature. N o left pelvic sidewall or inguinal adenopathy is seen. No soft tissue hematoma is identified. IMPRESSION: No fracture of the left hip is identified by CT. Consider MRI of the left hip for definit cecilio assessment. ACT 112: Negative or not required by law. Electronically signed by: Param Gaines M.D. 07/14/2021 10:02 AM
[2021-07-14] MEDS ORDERED: POTASSIUM CHLORIDE CRTAB 20 MEQ TABCR PO STA (10:34)
[2021-07-14] MEDS ORDERED: AZTREONAM CONSULT ACTIVE PRN (10:48)
--- NOTE | 2021-07-14 11:01 | Orthopedic Consultation ---
Date of Consultation July 14, 2021 Assessment & Plan (1) Osteoarthritis of left knee: She complains of pain around the lateral aspect of her left knee, where she has severe advanced arthritic degeneration. No fractures are seen in the knee. No fractures in the hip. She does not require any surgical intervention at this point. She may weight-bear as tolerated. If she has significant localized extremity pain with ambulation, we could consider MRI of a certain area to evaluate for occult fracture. (2) Contusion of right shoulder: She also complains of pain in the right shoulder, but maintains good range of motion. She reports a history of multiple fractures in the shoulder in the past. Will order x-rays of the shoulder to evaluate for any acute fracture. History of Present Illness Reason for Consultation: Possible left hip fracture Attending Physician: Ortiz Jaime MD History of Present Illness Ms. De Luna is an 85-year old female with numerous severe medical problems who had a ground-level fall when she slipped while using her walker. She says that she impacted her right shoulder on a door jam, and fell onto her right side. She has a lot of pre-existing orthopedic issues including chronic shoulder pain and chronic knee pain related to arthritis. Her biggest extremity complaints after this fall include right shoulder pain and left knee and lower leg pain. She denies any significant pain in the left hip. She thinks her right shoulder pain is just from a direct impact. She says that she has broken this shoulder "multiple times", but never had any surgery. She is still able to move both shoulders about the same as prior to the fall with no significant loss of function, just some soreness with range of motion. In her left knee and lower leg, it is unclear whether this is a radiculopathy type pain or a sharp localized pain. She describes it more of sharp and localized, and denies pain running down the hip or upper leg. She does endorse back pain, and has a known thoracic spine fracture, being evaluated by Dr. Elmore. Allergies Allergy/AdvReac Type Severity Reaction Status Date / Time adhesive tape Allergy Unknown Verified 07/13/21 20:40 hydromorphone Allergy Unknown Verified 07/13/21 20:40 oxycodone [From Percocet] Allergy Unknown Verified 07/13/21 20:40 Penicillins Allergy Unknown Verified 07/13/21 20:40 FLU VACCINE Allergy Unknown Uncoded 07/13/21 20:40 HAEMOPHILUS INFLUENZAE Allergy Unknown Uncoded 07/13/21 20:40 Home Medications Medication Instructions Recorded Confirmed Type alendronate 70 mg tablet 70 mg PO WK 07/13/21 07/13/21 History apixaban 5 mg tablet (Eliquis) 5 mg PO BID 07/13/21 07/13/21 History atorvastatin 80 mg tablet 80 mg PO QPM 07/13/21 07/13/21 History fluticasone furoate 200 1 inh INHALATION DAILY 07/13/21 07/13/21 History mcg-vilanterol 25 mcg/dose inhalation powder (Breo Ellipta) glipizide 10 mg tablet, extended 10 mg PO DAILY 07/13/21 07/13/21 History release 24 hr insulin regular human 100 unit/mL 1 sliding scale dose SUBCUT 07/13/21 07/13/21 History injection solution (Humulin R USEASDIRECTD Regular U-100 Insulin) mirabegron 25 mg tablet,extended 25 mg PO DAILY 07/13/21 07/13/21 History release 24 hr (Myrbetriq) potassium chloride 10 mEq 10 meq PO BID 07/13/21 07/13/21 History tablet,extended release sertraline 50 mg tablet 50 mg PO DAILY 07/13/21 07/13/21 History torsemide 20 mg tablet 40 mg PO .TODAY 07/13/21 07/13/21 History torsemide 20 mg tablet 40 mg PO DAILY 07/13/21 07/13/21 History Patient History Medical History History of atrial fibrillation History of CHF (congestive heart failure) History of COPD History of coronary artery disease History of kidney stones Surgical History History of coronary artery bypass graft History of permanent cardiac pacemaker placement Social History (Updated 07/13/21 @ 20:17 by Desmond Delarosa DO) Smoking Status: Never smoker Do You Dip or Chew Tobacco: No; Hx Alcohol Use: No Hx Substance Use: No Communication Ability: Effective Beliefs That Will Affect Care: None Current Living Situation: Alone Feels Safe at Home: Yes Safety Concerns: Feels Safe At This Time Assistive Devices: Glasses, Oxygen - Continuous and Walker Assistive Devices Comment: glasses not with patient Physical Exam Physical Exam: Examination of bilateral lower extremities reveals some valgus deformity across her knees. She is able to lift both legs off of the bed without significant difficulty. Logroll of both legs reproduces no pain in either hip. She only complains of pain around the lateral side of the left knee and radiating down the lower leg. Intact straight leg raise. Moderate left knee pain with range of motion. She does also have some right shoulder pain with range of motion, but can actively abduct easily up to about 90 degrees without difficulty. Motor and sensory exam is intact in all extremities. Results & Data ([facility]) Vital Signs (Past 12 Hours) Vital Signs Temp Pulse Resp BP Pulse Ox 07/14/21 08:06 36.6 C 59 L 16 139/65 91 Diagnostic Findings Bilateral hip x-ray is show questionable irregularity at the femoral neck of the left hip visible on one view only. It looks normal on the other views. CT scan of the left hip shows no fractures. X-rays of bilateral knees show advanced tricompartmental arthritic degeneration. The arthritis appears worst in the lateral compartment of the left knee. No imaging of the right shoulder obtained so far.
--- NOTE | 2021-07-14 11:55 | XRay Report ---
XR shoulder RT min 2V routine CLINICAL HISTORY: Right shoulder pain s/p fall COMPARISON STUDY: None. FINDINGS: No acute fracture or dislocation within the right shoulder. There are severe osteoarthritis at the glenohumeral joint. There is narrowing of the subacromial space with [id number] articulatio n consistent with chronic rotator cuff tear. There is also moderate AC joint arthrosis. The right cla vicle is intact. The bones are osteopenic. No significant soft tissue swelling. There are old, healed right-sided rib fractures. IMPRESSION: 1. No acute fracture or dislocation within the right shoulder. 2. Moderate to severe osteoarthritis. 3. Chronic rotator cuff tear. ACT 112: Negative or not required by law. Electronically signed by: John Jensen M.D. 07/14/2021 11:53 AM
[2021-07-14] MEDS: AZTREONAM 1,000 MG in DEXTROSE 5% 100 ML IV SCH ×2 (12:35→19:31)
[2021-07-14] MEDS: FLUTICASONE/VILANTEROL 200/25MCG 14 PUFFS/INHALER INH SCH (12:36)
[2021-07-14] MEDS: LIDOCAINE 5% 1 PATCH TD SCH (16:41)
--- NOTE | 2021-07-14 16:45 | Hospitalist Progress Note ---
Date of Service July 14, 2021 Assessment & Plan (1) Fall: Plan: 1. s/p Mechanical Fall Right shoulder contusion - Xray: no fractures Left shoulder pain - check xray Ortho consulted no surgical intervention at this point no hip fracture per CT weight bearing as tolerated - continue pain control, PT/OT 2. T11 spine fracture. -- Dr. Elmore consulted no surgical intervention -- may need brace 3. History of coronary artery disease, status post coronary artery bypass grafting. - stable resume Eliquis 4. History of atrial fibrillation. - resume Eliquis 5. History of diabetes, holding her glipizide. Place her on insulin sliding scale. - A1c 7 6. History of chronic diastolic congestive heart failure. -- Continue torsemide and potassium supplements. 7. Depression, anxiety. Continue sertraline. 8. History of chronic obstructive pulmonary disease and chronic respiratory failure, on home oxygen. Continue her home inhalers, currently stable. 9. History of osteoporosis. Continue alendronate q. weekly. 10. Lung nodule. needs followup. 11. Deep venous thrombosis prophylaxis. resume Eliquis Disposition may need Rehab PT/OT pending Admission and Anticipated Discharge Date Admission Date: July 13, 2021 Subjective ff up for s/p mechanical fall seen resting in bed, not in distress reports L shoulder pain, back pain, L knee pain no chest pain, dyspnea, palpitations, dizziness no abdominal pain, nausea/vomiting no fever/chills no other symptoms Review of Systems Review of Systems: all noted and negative except for above Physical Exam Physical Exam: General- oriented x 3, not in distress, speaks in sentences with no effort or accessory muscle use Head- atraumatic Eyes- PERRL, EOMI, anicteric ENT- oropharynx clear Neck- supple, no JVD, no adenopathy, no thyromegaly; carotids +2/2, no bruits appreciated Lungs- clear to auscultation bilaterally, no rales/wheezes Heart- normal rate, regular rhythm; no murmur, no gallop, no rub appreciated Abdomen- normal bowel sounds, nondistended, soft, nontender, no masses or hepatosplenomegaly Extremities- no pretibial edema, no calf tenderness; peripheral pulses intact left shoulder: minimal tenderness, no edema, erythema, warmth left knee: (+) moderate tenderness, no edema, erythema, warmth Neuro- alert, oriented x 3; CN 2-12 grossly intact; motor 5/5 bilaterally;sensation 100% on all extremities; no other gross focal neurologic deficits Skin- warm & dry Results & Data Results & Data ([facility]) Vital Signs (Past 12 Hours) Vital Signs Temp Pulse Resp BP Pulse Ox 07/14/21 15:46 36.7 C 61 16 143/69 H 91 07/14/21 08:06 36.6 C 59 L 16 139/65 91 all noted and reviewed including below (1) Fall Encounter type: initial encounter Qualified Code(s): W19.XXXA - Unspecified fall, initial encounter
[2021-07-14] MEDS: SODIUM CHLORIDE 0.9% 1000ML 1,000 ML IV SCH (16:53)
[2021-07-14] MEDS: ATORVASTATIN 40 MG TAB PO SCH (20:41)
[2021-07-14] MEDS: APIXABAN 5 MG TABLET PO SCH (20:41)
--- NOTE | 2021-07-14 22:37 | XRay Report ---
XR shoulder LT min 2V routine CLINICAL HISTORY: R/O FX COMPARISON: None. DISCUSSION: Significant deformity of the left shoulder most likely represent old fracture. Associated severe degenerative changes of the shoulder shoulder joint with subchondral sclerosis and deformity of the glenoid and left humeral head. IMPRESSION: As above ACT 112: Negative or not required by law. The above report was generated using voice recognition software. It may contain grammatical, syntax o r spelling errors. Electronically signed by: Rufina Loving DO 07/14/2021 10:36 PM
[2021-07-15] MEDS: traMADol HCL 50 MG TABLET PO PRN (04:05)
[2021-07-15] MEDS: AZTREONAM 1,000 MG in DEXTROSE 5% 100 ML IV SCH ×3 (04:05→20:37)
--- NOTE | 2021-07-15 05:54 | Electrocardiogram Report ---
Test Reason : Blood Pressure : / mmHG Vent. Rate : 066 BPM Atrial Rate : 066 BPM P-R Int : 244 ms QRS Dur : 156 ms QT Int : 490 ms P-R-T Axes : 033 -47 019 degrees QTc Int : 513 ms Poor data quality, interpretation may be adversely affected Sinus rhythm with 1st degree A-V block Right bundle branch block Left anterior fascicular block Bifascicular block Abnormal ECG No previous ECGs available Confirmed by Eb Williamson ([id number]) on 07/15/2021 5:53:43 AM Referred By: [facility] Confirmed By:Eb Williamson
--- NOTE | 2021-07-15 08:02 | XRay Report ---
XR shoulder RT min 2V routine CLINICAL HISTORY: r/o fracture. Right shoulder pain. COMPARISON STUDY: Right shoulder 07/14/2021. FINDINGS: No acute fracture or dislocation within the right shoulder. The right clavicle is intact. M oderate to severe degenerative changes with a chronic rotator cuff tear again noted. There are postst ernotomy changes. Soft tissues are unremarkable. IMPRESSION: 1. No fractures within the right shoulder. 2. Chronic changes as described above. ACT 112: Negative or not required by law. Electronically signed by: John Jensen M.D. 07/15/2021 8:00 AM
[2021-07-15 09:21] LABS: Basophils # (auto) 0.04 K/uL (0-0.2); Basophils % (auto) 0.3 %; Eosinophils # (auto) 0.44 K/uL (0-0.5); Eosinophils % (auto) 3.3 %; Hematocrit (blood only) 40.7 % (37-47); Immature Granulocytes # (auto) 0.03 K/uL (0.00-0.02); Immature Granulocytes % (auto) 0.2 %; Lymphocytes # (auto) 1.51 K/uL (1.2-3.4); Lymphocytes % (auto) 11.3 %; Mean Corpuscular Hemoglobin 33.2 pg (25-34); Mean Corpuscular Hgb Conc 31.9 g/dL (32-36); Mean Corpuscular Volume 103.8 fL (80-100); Mean Platelet Volume 10.8 fL (7.4-10.4); Monocytes # (auto) 0.66 K/uL (0.11-0.59); Neutrophils # (auto) 10.64 K/uL (1.4-6.5); Neutrophils % (auto) 79.9 %; Platelet Count 752 K/uL (130-400); RDW Coefficient of Variation 15.9 % (11.5-14.5); RDW Standard Deviation 60.5 fL (36.4-46.3); Red Blood Count 3.92 M/uL (4.2-5.4); White Blood Count 13.32 K/uL (4.8-10.8)
[2021-07-15] MEDS: TORSEMIDE 20 MG TAB PO SCH (09:23)
[2021-07-15] MEDS: MIRABEGRON ER 25 MG TAB PO SCH (09:23)
[2021-07-15] MEDS: FLUTICASONE/VILANTEROL 200/25MCG 14 PUFFS/INHALER INH SCH (09:23)
[2021-07-15] MEDS: POTASSIUM CHLORIDE 10 MEQ TABCR PO SCH ×2 (09:23→20:44)
[2021-07-15] MEDS: SERTRALINE HCL 50 MG TABLET PO SCH (09:23)
[2021-07-15] MEDS: APIXABAN 5 MG TABLET PO SCH ×2 (09:23→20:38)
[2021-07-15] MEDS: INSULIN ASPART 100 UNITS/ML 3 ML PEN SC SCH ×4 (09:24→21:50)
[2021-07-15] MEDS: LIDOCAINE 5% 1 PATCH TD SCH (09:24)
[2021-07-15 09:48] LABS: BUN Creatinine Ratio 18.2 (10-20); Calcium 9.1 mg/dl (8.5-10.1); Est GFR (African American) 58.1 ml/min; Est GFR (Non-African American) 50.1 ml/min; Potassium 3.9 mmol/L (3.5-5.1)
--- NOTE | 2021-07-15 19:36 | Hospitalist Progress Note ---
Date of Service July 15, 2021 Assessment & Plan (1) Fall: Plan: 1. s/p Mechanical Fall Right shoulder contusion - Xray: no fractures Left shoulder pain - xray: no fracture Ortho consulted no surgical intervention at this point no hip fracture per CT weight bearing as tolerated - continue pain control, PT/OT UTI - urine culture gram negative bacilli - Aztreonam IV 2. T11 spine fracture. -- Dr. Elmore consulted no surgical intervention -- may need brace 3. History of coronary artery disease, status post coronary artery bypass grafting. - stable Eliquis 4. History of atrial fibrillation. - Eliquis 5. History of diabetes, holding her glipizide. Place her on insulin sliding scale. - A1c 7 6. History of chronic diastolic congestive heart failure. -- Continue torsemide and potassium supplements. 7. Depression, anxiety. Continue sertraline. 8. History of chronic obstructive pulmonary disease and chronic respiratory failure, on home oxygen. Continue her home inhalers, currently stable. 9. History of osteoporosis. Continue alendronate q. weekly. 10. Lung nodule. needs followup. 11. Deep venous thrombosis prophylaxis. Eliquis Disposition may need Rehab PT/OT pending Admission and Anticipated Discharge Date Admission Date: July 13, 2021 Subjective ff up for s/p fall seen resting in chair comfortable appears brighter states right shoulder, back pain seems to be improved today had some left knee pain with walking no bladder pain, chills no other symptoms Review of Systems Review of Systems: all noted and negative except for above Physical Exam Physical Exam: General- oriented x 3, not in distress, speaks in sentences with no effort or accessory muscle use Eyes- anicteric Neck- no JVD Lungs- clear BS BL Heart- normal rate, regular rhythm; no murmurs Abdomen- normal bowel sounds, nondistended, soft, nontender Extremities- no pretibial edema, no calf tenderness no knee edema, erythema, tenderness Neuro- alert, oriented x 3; no gross focal neurologic deficits Skin- warm & dry Results & Data Results & Data ([facility]) Vital Signs (Past 12 Hours) Vital Signs Temp Pulse Resp BP BP Pulse Ox 07/15/21 15:05 36.9 C 74 18 130/78 96 07/15/21 07:54 36.8 C 65 19 129/71 97 all noted and reviewed including below (1) Fall Encounter type: initial encounter Qualified Code(s): W19.XXXA - Unspecified fall, initial encounter
[2021-07-15] MEDS: ATORVASTATIN 40 MG TAB PO SCH (20:38)
[2021-07-16] MEDS: AZTREONAM 1,000 MG in DEXTROSE 5% 100 ML IV SCH ×2 (04:00→13:13)
[2021-07-16] MEDS: SERTRALINE HCL 50 MG TABLET PO SCH (08:50)
[2021-07-16] MEDS: APIXABAN 5 MG TABLET PO SCH ×2 (08:50→21:20)
[2021-07-16] MEDS: INSULIN ASPART 100 UNITS/ML 3 ML PEN SC SCH ×3 (08:50→18:03)
[2021-07-16] MEDS: MIRABEGRON ER 25 MG TAB PO SCH (08:50)
[2021-07-16] MEDS: LIDOCAINE 5% 1 PATCH TD SCH (08:51)
[2021-07-16] MEDS: POTASSIUM CHLORIDE 10 MEQ TABCR PO SCH ×2 (08:51→21:21)
[2021-07-16] MEDS: TORSEMIDE 20 MG TAB PO SCH (08:51)
[2021-07-16] MEDS: FLUTICASONE/VILANTEROL 200/25MCG 14 PUFFS/INHALER INH SCH (08:51)
[2021-07-16] MEDS ORDERED: PHARMACY GLYCEMIC MGMT CONSULT PRN (14:19)
--- NOTE | 2021-07-16 15:01 | Pharmacy Report ---
Pharmacy Glycemic Short Note 2 - Date of Service July 16, 2021 - Glycemic Short BSG Results (Last 24 hours): 07/15/21 07/15/21 07/16/21 16:56 21:13 07:59 POC Glucose 109 H 247 H 139 H 07/16/21 12:00 POC Glucose 290 H OUTPATIENT ANTIDIABETIC REGIMEN: * glipizide 10 mg daily * Regular insulin per scale? * HbA1C = 7% ASSESSMENT: * Ms De Luna is an 85 y/o F with a PMH of T2DM who presents with a fall. * Fasting BSGs have been well controlled (109, 96 ,139) so continue with no basal insulin. * Post prandial BSGs are elevated indicating carbohydrate coverage is not sufficient. Tighten CR. * After elevated BSG, blood sugar corrects rapidly. continue CF. PLAN FOR INPATIENT GLYCEMIC CONTROL: * Hold outpatient oral diabetes medications * Basal insulin- hold * Bolus insulin * NovoLog per scale ACHS or Q6hrs while NPO * Goal Range: Low 110 mg/dL - High 140 mg/dL * Correction Factor: 30 mg/dL/unit * Nutritional / Prandial insulin per carb ratio of 1 unit per 7 grams CHO consumed PLAN FOR DISCHARGE: * tbd
--- NOTE | 2021-07-16 15:30 | Hospitalist Progress Note ---
Date of Service July 16, 2021 Assessment & Plan (1) Fall: Plan: 1. s/p Mechanical Fall Right shoulder contusion - Xray: no fractures Left shoulder pain - xray: no fracture Ortho consulted no surgical intervention at this point no hip fracture per CT weight bearing as tolerated - continue pain control, PT/OT UTI - urine culture (+) Citrobacter farmeri - Aztreonam IV x 2 days --> PO Cefdinir Day 11/14 2. T11 spine fracture. -- Dr. Elmore consulted no surgical intervention -- may need brace pain control, PT/OT 3. History of coronary artery disease, status post coronary artery bypass grafting. - stable Eliquis 4. History of atrial fibrillation. - Eliquis 5. History of diabetes, holding her glipizide. Place her on insulin sliding scale. - A1c 7 6. History of chronic diastolic congestive heart failure. -- Continue torsemide and potassium supplements. 7. Depression, anxiety. Continue sertraline. 8. History of chronic obstructive pulmonary disease and chronic respiratory failure, on home oxygen. Continue her home inhalers, currently stable. 9. History of osteoporosis. Continue alendronate q. weekly. 10. Lung nodule. needs followup. 11. Deep venous thrombosis prophylaxis. Eliquis Disposition may need Rehab PT/OT pending Admission and Anticipated Discharge Date Admission Date: July 13, 2021 Subjective ff up for s/p fall, uti, etc seen resting in chair, comfortable states pain continues to improve able to ambulate to hallways today, less knee pain no bladder, pain, chills, nausea no other symptoms Review of Systems Review of Systems: all noted and negative except for above Physical Exam Physical Exam: General- oriented x 3, not in distress, speaks in sentences with no effort or accessory muscle use Eyes- anicteric Neck- no JVD Lungs- clear BS BL no rales/wheezing Heart- normal rate, regular rhythm; no murmurs Abdomen- normal bowel sounds, nondistended, soft, nontender Extremities- no pretibial edema, no calf tenderness Neuro- alert, oriented x 3; no gross focal neurologic deficits Skin- warm & dry Results & Data Results & Data ([facility]) Vital Signs (Past 12 Hours) Vital Signs Temp Pulse Resp BP Pulse Ox 07/16/21 12:18 37.0 C 68 20 113/57 L 96 07/16/21 10:44 95 07/16/21 08:19 36.6 C 60 20 127/62 97 all noted and reviewed including below (1) Fall Encounter type: initial encounter Qualified Code(s): W19.XXXA - Unspecified fall, initial encounter
[2021-07-16] MEDS: traMADol HCL 50 MG TABLET PO PRN (18:45)
[2021-07-16] MEDS: CEFDINIR 300 MG CAP PO SCH (21:21)
[2021-07-16] MEDS: ATORVASTATIN 40 MG TAB PO SCH (21:22)
[2021-07-17] MEDS: INSULIN ASPART 100 UNITS/ML 3 ML PEN SC SCH ×3 (00:07→12:54)
[2021-07-17] MEDS: traMADol HCL 50 MG TABLET PO PRN ×2 (03:29→09:23)
[2021-07-17 06:26] LABS: Creatinine Clr Calc Pharmacy 36.7 ml/min; Est GFR (African American) 59.5 ml/min; Est GFR (Non-African American) 51.3 ml/min
[2021-07-17] MEDS ORDERED: ACETAMINOPHEN 325 MG TAB PO PRN (08:35)
[2021-07-17] MEDS ORDERED: INSULIN GLARGINE SOLOSTAR 100 UNITS/ML 3 ML PEN SC SCH (09:00)
[2021-07-17] MEDS ORDERED: ALENDRONATE SODIUM 70 MG TAB PO SCH (09:00)
[2021-07-17] MEDS: FLUTICASONE/VILANTEROL 200/25MCG 14 PUFFS/INHALER INH SCH (09:23)
[2021-07-17] MEDS: CEFDINIR 300 MG CAP PO SCH (09:23)
[2021-07-17] MEDS: MIRABEGRON ER 25 MG TAB PO SCH (09:24)
[2021-07-17] MEDS: APIXABAN 5 MG TABLET PO SCH (09:24)
[2021-07-17] MEDS: POTASSIUM CHLORIDE 10 MEQ TABCR PO SCH (09:24)
[2021-07-17] MEDS: SERTRALINE HCL 50 MG TABLET PO SCH (09:24)
[2021-07-17] MEDS: TORSEMIDE 20 MG TAB PO SCH (09:25)
--- NOTE | 2021-07-17 09:59 | Pharmacy Report ---
Pharmacy Glycemic Short Note 2 - Date of Service July 17, 2021 - Glycemic Short BSG Results (Last 24 hours): 07/16/21 07/16/21 07/16/21 12:00 17:15 20:49 POC Glucose 290 H 82 109 H 07/17/21 08:04 POC Glucose 159 H OUTPATIENT ANTIDIABETIC REGIMEN: * glipizide 10 mg daily * Regular insulin per scale? * HbA1C = 7% ASSESSMENT: 07/17/21 * BSGs yesterday were 139-290- 82-109. Pharmacy consulted midafternoon. * Fasting today was 159 mg/dL --- start Lantus 20 units (0.2 units/kg) now. * Continue Novolog, may need loosened with addition of Lantus. Background * Ms De Luna is an 85 y/o F with a PMH of T2DM who presents with a fall. * Fasting BSGs have been well controlled (109, 96 ,139) so continue with no basal insulin. * Post prandial BSGs are elevated indicating carbohydrate coverage is not sufficient. Tighten CR. * After elevated BSG, blood sugar corrects rapidly. continue CF. PLAN FOR INPATIENT GLYCEMIC CONTROL: * Hold outpatient oral diabetes medications * Basal insulin * Lantus 20 units SQ daily * Bolus insulin * NovoLog per scale ACHS or Q6hrs while NPO * Goal Range: Low 110 mg/dL - High 140 mg/dL * Correction Factor: 30 mg/dL/unit * Nutritional / Prandial insulin per carb ratio of 1 unit per 7 grams CHO consumed PLAN FOR DISCHARGE: * tbd
[2021-07-17] MEDS: LIDOCAINE 5% 1 PATCH TD SCH (11:48)
--- NOTE | 2021-07-17 12:54 | Hospitalist Progress Note ---
Date of Service July 17, 2021 Assessment & Plan (1) Fall: Plan: 1. s/p Mechanical Fall, Right shoulder contusion, Left Knee Osteoarthritis Right shoulder contusion - Xray: 1. No acute fracture or dislocation within the right shoulder. 2. Moderate to severe osteoarthritis. 3. Chronic rotator cuff tear. Osteoarthritis of left knee: - secondary to severe advanced arthritic degeneration. No fractures are seen in the knee. No fractures in the hip. S - does not require surgery - She may weight-bear as tolerated - consider MRI if with worsening of pain with ambulation Ortho consulted- Dr. Cannon Other imaging studies negative for acute fracture including Cervical spine CT, CT head, CT hip, bilateral knees, chest xray, lumbar spine CT, bilateral shoulders - continue pain control with PRN Tylenol and Tramadol, PT/OT UTI - urine culture (+) Citrobacter farmeri - Aztreonam IV x 2 days --> PO Cefdinir Day x 2 more days to complete 5 day course 2. T11 spine fracture -- CT lumbar spine: A nondisplaced horizontal fracture through the anterior aspect of the T11 vertebral body which extends to the inferior endplate. No associated retropulsion or significant loss of height. The fracture does not extend to the posterior cortex or posterior elements. -- Dr. Elmore consulted no surgical intervention -- may need brace - please evaluate pain control with Lidoderm patch, PT/OT 3. History of coronary artery disease, status post coronary artery bypass grafting. - stable Eliquis 4. History of atrial fibrillation. - Eliquis 5. History of diabetes - A1c 7 - continue Glipizide 6. History of chronic diastolic congestive heart failure. -- Continue torsemide and potassium supplements. 7. Depression, anxiety. Continue sertraline. 8. History of chronic obstructive pulmonary disease and chronic respiratory failure, on home oxygen. Continue her home inhalers, currently stable. 9. History of osteoporosis. Continue alendronate q. weekly. 10. Lung nodule -- seen on CT thoracic spine A 7 mm indeterminate pulmonary nodule within the left upper lobe. Please refer to the full CT report for recommended follow-up. -- Further work up, management, and ff up as outpatient 11. Deep venous thrombosis prophylaxis. Eliquis Disposition [facility] ff up with Ortho ff up Lung nodule Admission and Anticipated Discharge Date Admission Date: July 13, 2021 Subjective Follow-up for status post fall, uti etc seen resting bedside chair, comfortable states she feels ok overall has intermittent R shoulder, Back and knee pain- improving, well managed by PRN tylenol and tramadol no abdominal pain ,nausea/vomiting, fever/chills no other symptoms states she is agreeable for discharge today Review of Systems Review of Systems: all noted and negative except for above Physical Exam Physical Exam: General- oriented x 3, not in distress, speaks in sentences with no effort or accessory muscle use Eyes- anicteric Neck- no JVD Lungs- clear BS bilaterally Heart- normal rate, regular rhythm; no murmurs Abdomen- normal bowel sounds, nondistended, soft, nontender Extremities- no pretibial edema, no calf tenderness Neuro- alert, oriented x 3; no gross focal neurologic deficits Skin- warm & dry Results & Data Results & Data ([facility]) Vital Signs (Past 12 Hours) Vital Signs Temp Pulse Resp BP Pulse Ox 07/17/21 08:12 36.7 C 62 20 127/73 95 all noted and reviewed including below (1) Fall Encounter type: initial encounter Qualified Code(s): W19.XXXA - Unspecified fall, initial encounter
--- NOTE | 2021-07-17 13:10 | Discharge Summary ---
Date of Service July 17, 2021 Admission HPI Per Admitting Provider CHIEF COMPLAINT: Status post fall, T12 thoracic spine fracture and left hip fracture. HISTORY OF PRESENT ILLNESS: An 85-year-old female with past medical history significant for COPD, chronic respiratory failure -- on home oxygen, chronic diastolic CHF, chronic atrial fibrillation, peripheral vascular disease, CAD, status post CABG, hypertension, obesity, chronic kidney disease stage III, history of osteoporosis, generalized osteoarthritis, thrombocytosis, history of third-degree heart block, status post pacemaker, depression, anxiety, impaired mobility and ADLs. The patient is currently at [facility] because she has both rotator cuff pain and shoulder pain. She says she had surgery on the shoulder 2 times and at this time, there is no surgery planned and she is in rehab for the pain. Today, she comes here because of fall. Today after 3:00 p.m., she was walking with a walker when she slipped and fell on the right side. She hit her head, but no loss of consciousness. She was trying to avoid direct hit to head and she was brought in here. She was found to have T12 spine fracture and also left hip fracture. The patient was surprised of how she has injured her left hip. No loss of consciousness. Complains of back pain and shoulder pain. Denies any chest pain, no shortness of breath, no cough, no fevers, no headaches, no blurred visions, no earache, no runny nose, no sore throat. Cam etite is good. No difficulty swallowing. No nausea. Says she has mild abdominal discomfort. Normal bowel movements. Normal bladder movements. Currently, resting comfortably and hemodynamically stable. Admission Exam (Per Admitting) Constitutional GENERAL: The patient is obese, not in acute distress. VITAL SIGNS: Temperature 36.4, pulse 69, respiratory rate 20, blood pressure 152/89, oxygen 99% on 3 liters. HEENT: Pupils equal, round and reactive to light. Oral mucosa dry. NECK: No JVD, no neck masses. CARDIOVASCULAR: S1 and S2 heard. Regular rate and rhythm. No murmur, no gallop. RESPIRATORY SYSTEM: Normal AP diameter. No accessory muscle use. No wheezing, no crackles. ABDOMEN: Soft, bowel sounds present, nontender, no distention. CENTRAL NERVOUS SYSTEM: Alert and oriented. Cranial nerves II-XII grossly intact, nonfocal. EXTREMITIES: Left lower extremity is shortened and externally rotated, painful movements. No edema, no erythema seen. Discharge Data Consultations 07/13/21 20:20 ED Decision to Admit Stat 07/13/21 22:41 Consult Orthopedic Surgery Routine 07/14/21 08:00 Consult Orthopedic Surgery Routine Procedures Performed THORACIC SPINE CT CT DOSE: HISTORY: Fall. Back pain. TECHNIQUE: Multiaxial CT images of the thoracic spine were performed and reformatted in the sagittal and coronal plane without the use of contrast. A dose lowering technique was utilized adhering to the principles of ALARA. COMPARISON: None. FINDINGS: Multiple old, healed right-sided rib fractures. 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 No subluxation. Moderate dextroscoliosis. There is a horizontal fracture through the anterior half of the T11 vertebral body. This does not involve the posterior cortex or posterior elements. This fracture appears to extend to the inferior endplate of T11. No significant loss of height or retropulsion identified. Mild paravertebral edema at the T11 level. The central canal shows no significant narrowing. Emphysema. No pneumothorax. No pleural effusions. A 7 mm nodule within the left upper lobe posteriorly abutting the major fissure on image 110. IMPRESSION: 1. A nondisplaced horizontal fracture through the anterior aspect of the T11 vertebral body which extends to the inferior endplate. No associated retropulsion or significant loss of height. The fracture does not extend to the posterior cortex or posterior elements. 2. Emphysema. 3. A 7 mm indeterminate pulmonary nodule within the left upper lobe. Please refer to the chart below for recommended follow-up. 4. Multiple old, healed right-sided rib fractures. Please refer to below summary of Fleischner criteria recommendations for follow- up of incidental CT nodules (Mick Obrien, Guidelines for management of small pulmonary nodules detected on CT scans: A statement from the Fleischner Society, Radiology 237: [phone].) SOLID NODULES Solitary nodule size: <6 mm * Low risk patients: no follow-up needed * high risk patients: optional CT at 12 months Solitary nodule size: 6-8 mm * Low risk patients: follow-up at 6-12 months, then consider further follow-up at 18-24 months * high risk patients: initial follow-up CT at 6-12 months and then at 18-24 months if no change Solitary nodule size: >8 mm * either low or high risk patients - consider follow-up CT at 3 months, and/or CT-PET, and/or biopsy Multiple nodules size: <6 mm * Low risk patients: no routine follow-up * high risk patients: optional CT at 12 months Multiple nodules size: 6-8 mm * Low risk patients: follow-up at 3-6 months, then consider further follow-up at 18-24 months * high risk patients: follow-up at 3-6 months, then at 18-24 months if no change Multiple nodules size: >8 mm * Low risk patients: follow-up at 3-6 months, then consider further follow-up at 18-24 months * high risk patients: follow-up at 3-6 months, then at 18-24 months if no change Note: newly detected indeterminate nodule in persons 35 years of age or older. * Low risk patients: minimal or absent history of smoking and/or other known risk factors * high risk patients: history of smoking or of other known risk factors (e.g. first degree relative with lung cancer, or exposure to asbestos, radon, uranium) * if a nodule up to 8 mm is partly solid or is ground glass further follow-up is required after 24 months to exclude possible slow growing adenocarcinoma (YOLA) SUBSOLID NODULES Solitary pure ground-glass nodule * nodule size <6 mm - no CT follow-up required * nodule size >=6 mm - follow-up CT at 6-12 months, then every 2 years until 5 years Solitary part-solid nodule * nodule size <6 mm - no CT follow-up required * nodule size >=6 mm - follow-up CT at 3-6 months. If unchanged, and solid component remains <6 mm, then annual follow-up for 5 years Multiple subsolid nodules * nodule size <6 mm - follow-up CT at 3-6 months, consider further follow-up at 2 and 4 years if stable * nodule size >=6 mm - follow-up CT at 3-6 months, subsequent management based on the most suspicious nodule(s) ACT 112: Positive. There are findings on this exam that require communication between the performing entity and the patient following Patient Test Result Information Act ([place] Act 112) guidelines. Hospital Course (1) Fall: 1. s/p Mechanical Fall, Right shoulder contusion, Left Knee Osteoarthritis Right shoulder contusion - Xray: 1. No acute fracture or dislocation within the right shoulder. 2. Moderate to severe osteoarthritis. 3. Chronic rotator cuff tear. Osteoarthritis of left knee: - secondary to severe advanced arthritic degeneration. No fractures are seen in the knee. No fractures in the hip. S - does not require surgery - She may weight-bear as tolerated - consider MRI if with worsening of pain with ambulation Ortho consulted- Dr. Cannon Other imaging studies negative for acute fracture including Cervical spine CT, CT head, CT hip, bilateral knees, chest xray, lumbar spine CT, bilateral shoulders - continue pain control with PRN Tylenol and Tramadol, PT/OT UTI - urine culture (+) Citrobacter farmeri - Aztreonam IV x 2 days --> PO Cefdinir Day x 2 more days to complete 5 day course 2. T11 spine fracture -- CT lumbar spine: A nondisplaced horizontal fracture through the anterior aspect of the T11 vertebral body which extends to the inferior endplate. No associated retropulsio n or significant loss of height. The fracture does not extend to the posterior cortex or posterior elements. -- Dr. Elmore consulted no surgical intervention -- may need brace - please evaluate pain control with Lidoderm patch, PT/OT Lung nodule -- seen on CT thoracic spine A 7 mm indeterminate pulmonary nodule within the left upper lobe. Please refer to the full CT report for recommended follow-up. -- Further work up, management, and ff up as outpatient 3. History of coronary artery disease, status post coronary artery bypass grafting. - stable Eliquis 4. History of atrial fibrillation. - Eliquis 5. History of diabetes - A1c 7 - continue Glipizide 6. History of chronic diastolic congestive heart failure. -- Continue torsemide and potassium supplements. 7. Depression, anxiety. Continue sertraline. 8. History of chronic obstructive pulmonary disease and chronic respiratory failure, on home oxygen. Continue her home inhalers, currently stable. 9. History of osteoporosis. Continue alendronate q. weekly. Deep venous thrombosis prophylaxis. Eliquis Disposition [facility] ff up with Ortho ff up Lung nodule
== END 2021-07-17 14:20 | DRG 552 ==
LOC: ED 17:52 → 3N 21:35 → 3W 07-14 01:45